=== PATIENT | female | born 1990 | race Caucasian/White ===

== ENCOUNTER 2017-05-16 22:38 | Emergency (ER) | payer OTHER ==
[~2017-05-16] VITALS: Ht 157.5 cm; Wt 52.3 kg
[2017-05-16] MEDS ORDERED: ONDANSETRON 2MG/ML, 2ML IVPush ONE (23:00)
[2017-05-16] MEDS ORDERED: SODIUM CHLORIDE 0.9% 1,000ML IVBOLUS ONE (23:00)
[2017-05-16] MEDS ORDERED: SODIUM CHLORIDE FLUSH 10ML SYR IVF ONE (23:00)
[2017-05-16 23:18] LABS: CULTURE INDICATED? YES; MICROSCOPIC INDICATED
[2017-05-16 23:37] LABS: BASOPHILS # (AUTO) 0.01 x10^3/uL (0-0.1); BASOPHILS % (AUTO) 0 % (0-1); EOSINOPHILS # (AUTO) 0.05 x10^3/uL (0-0.4); EOSINOPHILS % (AUTO) 0 % (1-7); LYMPHOCYTES # (AUTO) 0.95 x10^3/uL (1-3.4); LYMPHOCYTES % (AUTO) 6 % (22-44); MD NO; MEAN CORPUSCULAR HEMOGLOBIN 32.6 pg (27.0-34.8); MEAN CORPUSCULAR HGB CONC 34.2 g/dL (32.4-35.8); MEAN CORPUSCULAR VOLUME 95.2 fL (80-100); MEAN PLATELET VOLUME 7.6 fL (7.4-10.4); MONOCYTES # (AUTO) 0.77 x10^3/uL (0.2-0.8); MONOCYTES % (AUTO) 5 % (2-9); NEUTROPHILS # (AUTO) 13.26 x10^3/uL (1.8-6.8); NEUTROPHILS % (AUTO) 88 % (42-75); PLATELET COUNT 413 x10^3/uL (130-400); RED BLOOD COUNT 4.06 x10^6/uL (3.82-5.3)
[2017-05-16] MEDS ORDERED: MORPHINE SULFATE 4 MG/ML, 1ML ONE (23:39)
[2017-05-16] MEDS ORDERED: ONDANSETRON 2MG/ML, 2ML ONE (23:39)
[2017-05-16 23:49] LABS: ALBUMIN 3.9 g/dL (3.4-5.0); ANION GAP 6 mmol/L (5-15); CALCIUM 8.8 mg/dL (8.5-10.1); CHLORIDE 108 mmol/L (98-107)
[2017-05-16 23:56] LABS: ALANINE AMINOTRANSFERASE 23 U/L (12-78); ALKALINE PHOSPHATASE 64 U/L (45-117); BILIRUBIN,TOTAL 0.8 mg/dL (0.2-1.0); CREATININE 0.68 mg/dL (0.55-1.02); TOTAL PROTEIN 7.5 g/dL (6.4-8.2)
[2017-05-17] MEDS: MORPHINE SULFATE 4 MG/ML, 1ML IVPush PRN ×2 (00:07→00:48)
[2017-05-17] MEDS ORDERED: MORPHINE SULFATE 4 MG/ML, 1ML ONE (00:52)
[2017-05-17 02:47] LABS: CLUE CELLS NONE SEEN (NONE SEEN); WET PREP WBCS FEW (FEW)
[2017-05-17] MEDS ORDERED: CEFTRIAXONE 250 MG ONE (02:58)
[2017-05-17] MEDS ORDERED: AZITHROMYCIN 250 MG TABLET ONE (02:58)
[2017-05-17] MEDS ORDERED: AZITHROMYCIN 500 MG TABLET PO ONE (03:00)
[2017-05-17] MEDS ORDERED: CEFTRIAXONE 250 MG IM ONE (03:00)
[2017-05-17 03:12] VITALS: BP 121/70
[2017-05-17] MEDS ORDERED: OMNIPAQUE 350 MG/ML, 100ML BOTTLE ONE (05:15)
== END 2017-05-17 03:15 | disposition home or self-care (01) ==
LOC: ED 23:08
DX: N73.0 Acute parametritis and pelvic cellulitis (principal); N83.209 Unspecified ovarian cyst, unspecified side; Z88.1 Allergy status to other antibiotic agents
CPT/HCPCS: 36415; 74177; 76830; 80053; 81001; 84703; 85025; 87077; 87086; 87210; 87491; 87591; 87808; 96361; 96372; 96374; 96375; 96376; 99285; J0696; J2405; J7030; Q9967; 87186